=== PATIENT | female | born 1980 | race African-American/Black ===

== ENCOUNTER 2021-02-25 09:16 | Emergency (ER) | payer OTHER, SELFPAY ==
[2021-02-25 09:57] VITALS: BP 152/95; PULSE 82; RESP 15; TEMP 36.3; O2SAT 100; BMI 33.5
[2021-02-25 10:33] LABS: COVID19 -Nasal RAPID POSITIVE (Negative)
--- NOTE | 2021-02-25 10:46 | ED.URI ---
HPI - URI/Sore Throat General Chief Complaint: Upper Respiratory Symptoms Stated Complaint: No taste, back pain, headache Time Seen by Provider: 02/25/21 10:40 Source: patient Mode of arrival: Ambulatory History of Present Illness HPI Narrative: Patient here for cough cold congestion fever body aches chills and loss of taste. Symptoms started 2 days ago. Sign is positive for COVID. Co-worker positive as well. Patient is COVID vaccinated. No nausea vomiting diarrhea. Patient does have history of asthma. She desires refill for her Flonase and inhaler. No dyspnea. Related Data Previous Rx's Medication Instructions Recorded albuterol sulfate 90 mcg/actuation 2 inhalation INHALATION QID PRN 02/25/21 aerosol inhaler (Ventolin HFA) #6.7 gram fluticasone propionate 50 1 spray INTRANASAL DAILY #16 g 02/25/21 mcg/actuation nasal spray,suspension Allergies Allergy/AdvReac Type Severity Reaction Status Date / Time No Known Drug Allergies Allergy Verified 02/25/21 09:57 Review of Systems Review of Systems Narrative: GENERAL: Complains of chills, fatigue, malaise, fever, sweats. HEENT: Denies sinus pain, ear pain, sore throat, complains of loss of taste RESPIRATORY: Denies dyspnea, complains of cough CARDIOVASCULAR: Denies chest pain, palpitations GASTROINTESTINAL: Denies nausea, vomiting, abdominal pain : Denies dysuria, frequency, hematuria MUSCULOSKELETAL: denies muscle or bony pain SKIN: Denies rash, skin lesions NEUROLOGIC: Denies weakness, numbness ROS Unobtainable: All systems reviewed & are unremarkable except as noted in HPI and below Patient History Social History Smoking Status: Unknown if ever smoked Smoking Status: Unknown if ever smoked alcohol intake frequency: holidays/special occasions only Substance Use Type: marijuana Exam Narrative Exam Narrative: GENERAL: in no distress, not toxic not dyspneic HEAD: Normocephalic. EYES: Pupils equal round No scleral icterus. NECK: Trachea midline. CARDIOVASCULAR: Regular rate and rhythm without murmurs RESPIRATORY: Clear to auscultation. Breath sounds equal bilaterally. No wheezes, rales, or rhonchi. Speaking full sentences BACK: No flank tenderness. NEURO: AOx4. SKIN: Warm and dry PSYCH: Not anxious, is cooperative Initial Vital Signs Initial Vital Signs: Vital Signs Temperature 97.4 F L 02/25/21 09:57 Pulse Rate 82 02/25/21 09:57 Respiratory Rate 15 02/25/21 09:57 Blood Pressure 152/95 H 02/25/21 09:57 Pulse Oximetry 100 02/25/21 09:57 Course Course Course Narrative: No new issues during course of stay Orders Ordered: ED Orders 02/25/21 10:01 COVID19 -Nasal swab/Pre-Proc Stat Reevaluation(s) Reevaluation #1: Reviewed results with patient. Agrees with treatment plan. She needs refill for inhaler and Flonase. Return precautions reviewed with her. Time: 11:13 Vital Signs Vital signs: Vital Signs - 8 hr 02/25/21 09:57 Temperature 97.4 F L Pulse Rate 82 Respiratory Rate 15 Blood Pressure 152/95 H Pulse Oximetry 100 MDM - URI/Sore Throat Differential Diagnosis Differential diagnosis: Likely viral infection Lab Data Labs: Lab Results 02/25/21 Range/Units 10:01 SARS-CoV-2 (PCR) Positive H (Negative) MDM Narrative Medical decision making narrative: Appropriate for discharge home. Examined vital signs reassuring. No x-ray or blood work indicated. Clear lung sounds. No hypoxia. Return precautions reviewed patient. Agrees with treatment plan Discharge Plan Departure Patient Disposition: Home Clinical Impression: COVID-19 Instructions: DI for COVID-19 (Suspected or Confirmed ) Activity Restrictions/Additional Instructions: You must quarantine 10 days from the 1st day of your symptoms. Keep well hydrated. May continue ibuprofen or Tylenol for pain or aches. Return if worsening questions or concerns or any trouble breathing. See family doctor in a week for recheck. Call provided primary care referral phone number to establish family doctor. Call [phone] Prescriptions: New albuterol sulfate [Ventolin HFA] 90 mcg/actuation HFA aerosol inhaler 2 inhalation INHALATION QID PRN (Reason: shortness of breath or wheezing) Qty: 6.7 0RF fluticasone propionate 50 mcg/actuation spray,suspension 1 spray intranasal DAILY Qty: 16 0RF Rx Instructions: administer into each nostril
== END 2021-02-25 11:05 | disposition home or self-care (01) ==
PROVIDERS: Emergency Provider Emergency Medicine
DX: U07.1 COVID-19 (principal)
CPT/HCPCS: 87635; 99281; 99282; C9803